=== PATIENT | female | born 1980 | race Caucasian/White ===

== ENCOUNTER 2017-01-06 10:41 | Emergency (ER) | payer OTHER ==
[~2017-01-06] VITALS: Ht 162.6 cm; Wt 103.4 kg
[~2017-01-06 10:41] MED LIST: ZOFRAN ODT4 MG PO
[2017-01-06 11:00] LABS: UTC STREP SCREEN NOT DETECTED (NOTDETECTED)
[2017-01-06] MEDS ORDERED: AMOXICILLIN 50500 MG PO (11:05)
[2017-01-06 11:06] VITALS: BP 126/53
--- NOTE | 2017-01-06 11:06 | Urgent Treatment Center Report ---
History of Present Issue Date/Time Seen by Provider 01/06/17 1100 Visit Reason Pt arrived:Walked Presenting Problem:PT STATES SHE HAS HEADACHE, SORE THROAT, STOMACH CRAMPS. STARTED X2 DAYS AGO. Location if Accident: Onset of symptoms date/time:/ or onset unknown for:MEDICAL HX UNKNOWN Have you (or family members/close friends) recently traveled outside the [place]? N If Yes, where/when: Have you had exposure to infectious disease within the past month? TB? Other? Specify: Patient states that she had a headache, sore throat and stomach aches and body aches for 2 days now so she thought she come in and get checked out ALLERGIES Uncoded Allergies: INGREDIENT: NO KNOWN - NO KNOWN DRUG ALLERGY (01/16/07) Home Medications Reported Medications No Known Home Medications History Medical History General Angina: No ME: No Hypertension? No Hyperlipidemia? No CHF? No COPD? No Asthma? No Hernia? No CVA? No Seizures? No Diabetes? No UTI? No Stones? No GB Disease: Yes Hepatitis? No Cataracts? No Glaucoma? No MRSA? No TB? No Cancer? No Immunization HX DT/Tetanus > 10 YRS Surgical Hx Previous Surgery?Y Gallbladd Oral Surgery Family History Family HX Diabetes No CAD No Hypertension No Hyperlipidemia No Cancer No TB No Social History Smoking Hx Smoker: Never Smoker Tobacco: No Alcohol Alcohol: No Review of Systems All Other Systems Reviewed and Negative ENT ear pain, nose discharge, nose congestion, throat swelling. Physical Exam Vital Signs Vital Signs Date Time Temp Pulse Resp B/P Pulse O2 O2 Flow FiO2 Ox Delivery Rate 01/06 1045 97.9 99 20 126/53 99 General Appearance normal appearance, WD/WN, no apparent distress Ear, Nose, Throat left ear bright red, TM buldging, throat slightly red, nare red, yellow mucous Respiratory Status Yes: trachea midline, chest symmetrical, non tender chest. No: respiratory distress. Cardiovascular normal exam, regular rate/rhythm, no peripheral edema Neurologic alert, pin setter II-XII nml as tested, normal exam, no motor/sensory deficits, oriented x 3 Medical Decision Making LABS/Meds/Orders Pt receiving controlled substance in ED? No Results/Orders Laboratory Tests 01/06/17 1052: Influenza Type A Ag NOT DETECTED, Influenza Type B Ag NOT DETECTED, Group A Strep Screen NOT DETECTED Orders Procedure Date/time Status [facility] STREP SCREEN 01/06 1052 Complete [facility] FLU A,B 01/06 1052 Complete Departure Departure Time of Disposition 1103 Disposition DC Home or Self Care(routine) Clinical Impression Primary Impression: Otitis media Qualifiers: Otitis media type: unspecified Laterality: left Chronicity: unspecified Qualified Code: H66.92 - Otitis media, unspecified, left ear Condition STABLE Referrals Eric Selby MD (Family) Patient Instructions DI for Otitis Media (Middle Ear Infection)-Child, Ear Infections (Middle Ear) (Alternative Therapy) Additional Instructions Over the counter Motrin or Tylenol as needed for fever or pain Follow up with family doctor Return if worse Discharge Counseling Counseled pt/family regarding diagnosis, test results, medications/RX, home care, follow up needs Prescriptions Current Visit Scripts Amoxicillin Trihydrate (Amoxicillin 500MG) 500 MG PO TID #30 CAP at 1101
--- NOTE | 2017-01-06 11:06 | Urgent Treatment Center Report ---
History of Present Issue Date/Time Seen by Provider 01/06/17 1100 Visit Reason Pt arrived:Walked Presenting Problem:PT STATES SHE HAS HEADACHE, SORE THROAT, STOMACH CRAMPS. STARTED X2 DAYS AGO. Location if Accident: Onset of symptoms date/time:/ or onset unknown for:MEDICAL HX UNKNOWN Have you (or family members/close friends) recently traveled outside the [place]? N If Yes, where/when: Have you had exposure to infectious disease within the past month? TB? Other? Specify: Patient states that she had a headache, sore throat and stomach aches and body aches for 2 days now so she thought she come in and get checked out ALLERGIES Uncoded Allergies: INGREDIENT: NO KNOWN - NO KNOWN DRUG ALLERGY (01/16/07) Home Medications Reported Medications No Known Home Medications History Medical History General Angina: No LA: No Hypertension? No Hyperlipidemia? No CHF? No COPD? No Asthma? No Hernia? No CVA? No Seizures? No Diabetes? No UTI? No Stones? No GB Disease: Yes Hepatitis? No Cataracts? No Glaucoma? No MRSA? No TB? No Cancer? No Immunization HX DT/Tetanus > 10 YRS Surgical Hx Previous Surgery?Y Gallbladd Oral Surgery Family History Family HX Diabetes No CAD No Hypertension No Hyperlipidemia No Cancer No TB No Social History Smoking Hx Smoker: Never Smoker Tobacco: No Alcohol Alcohol: No Review of Systems All Other Systems Reviewed and Negative ENT ear pain, nose discharge, nose congestion, throat swelling. Physical Exam Vital Signs Vital Signs Date Time Temp Pulse Resp B/P Pulse O2 O2 Flow FiO2 Ox Delivery Rate 01/06 1045 97.9 99 20 126/53 99 General Appearance normal appearance, WD/WN, no apparent distress Ear, Nose, Throat left ear bright red, TM buldging, throat slightly red, nare red, yellow mucous Respiratory Status Yes: trachea midline, chest symmetrical, non tender chest. No: respiratory distress. 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 No Results/Orders Laboratory Tests 01/06/17 1052: Influenza Type A Ag NOT DETECTED, Influenza Type B Ag NOT DETECTED, Group A Strep Screen NOT DETECTED Orders Procedure Date/time Status [facility] STREP SCREEN 01/06 1052 Complete [facility] FLU A,B 01/06 1052 Complete Departure Departure Time of Disposition 1103 Disposition DC Home or Self Care(routine) Clinical Impression Primary Impression: Otitis media Qualifiers: Otitis media type: unspecified Laterality: left Chronicity: unspecified Qualified Code: H66.92 - Otitis media, unspecified, left ear Condition STABLE Referrals Eric Selby MD (Family) Patient Instructions DI for Otitis Media (Middle Ear Infection)-Child, Ear Infections (Middle Ear) (Alternative Therapy) Additional Instructions Over the counter Motrin or Tylenol as needed for fever or pain Follow up with family doctor Return if worse Discharge Counseling Counseled pt/family regarding diagnosis, test results, medications/RX, home care, follow up needs Prescriptions Current Visit Scripts Amoxicillin Trihydrate (Amoxicillin 500MG) 500 MG PO TID #30 CAP at 1103
== END 2017-01-06 11:08 | disposition home or self-care (01) ==
LOC: UTC 10:41
PROVIDERS: Nurse Practitioner
DX: H66.92 Otitis media, unspecified, left ear (principal)

== ENCOUNTER 2017-05-04 09:06 | Emergency (ER) | payer OTHER ==
[~2017-05-04] VITALS: Ht 162.6 cm; Wt 104.3 kg
[~2017-05-04 09:06] MED LIST changes: +AMOXICILLIN 50500 MG PO
--- OUTSIDE RECORDS SUMMARY | 2017-05-04 09:10 | External Medical Summary Rpt ---
Author Author [employer] Organization [employer] Address Unknown Phone Unavailable Purpose Continuity of Care Document - through 2016
--- OUTSIDE RECORDS SUMMARY | 2017-05-04 09:10 | External Medical Summary Rpt ---
Author Author NANCYCLEMENCIA Sood, [employer] Organization [employer] Address Unknown Phone Unavailable Results Comprehensive metabolic 2000 panel in Serum or Plasma Observa Value Referen Units Interpr Notes Date tion ce etation Range Albumin/G 1.1 - 1.8 No Normal No Josemanuel 6 lobulin informati informati 2017 8:30 [Mass on in on in AM ratio] in source source Serum or data data Plasma Albumin 3.4 - 5.0 gm/dL Normal No Josemanuel 6 [Mass/vol informati 2017 8:30 ume] in on in AM Serum or source Plasma data Alkaline 46 - 116 U/L Normal No Josemanuel 6 phosphata informati 2017 8:30 se on in AM [Enzymati source c data activity/ volume] in Serum or Plasma Bilirubin 0.2 - 1.0 mg/dL Normal No Josemanuel 6 .total informati 2017 8:30 [Mass/vol on in AM ume] in source Serum or data Plasma Urea 7 - 18 mg/dL Normal No Josemanuel 6 nitrogen informati 2017 8:30 [Mass/vol on in AM ume] in source Serum or data Plasma Calcium 8.5 - mg/dL Normal No Josemanuel 6 [Mass/vol 10.1 informati 2017 8:30 ume] in on in AM Serum or source Plasma data Chloride 98 - 107 mmoL/L Normal No Josemanuel 6 [Moles/vo informati 2017 8:30 lume] in on in AM Serum or source Plasma data Carbon 21.0 - mmoL/L Normal No Josemanuel 6 dioxide, 32.0 informati 2017 8:30 total on in AM [Moles/vo source lume] in data Serum or Plasma Creatinin 0.55 - mg/dL Normal No Josemanuel 6 e 1.02 informati 2017 8:30 [Mass/vol on in AM ume] in source Serum or data Plasma Estimated 59- ML/MIN No REFERENCE Josemanuel 6 informati RANGE: 2017 8:30 glomerula on in >60 AM r source ML/MIN/1. filtratio data 73 SQUARE n rate METERSIf (GF this patient is -A merican, then multiply theresult by 1.210. Globulin 1.3 - 3.2 gm/dL Normal No Apr 6 [Mass/vol informati 2016 8:30 ume] in on in AM Serum source data Glucose 74 - 106 mg/dL Normal No Apr 6 [Mass/vol informati 2016 8:30 ume] in on in AM Serum or source Plasma data Potassium 3.5 - 5.1 mmoL/L Normal No Apr 07 informati 2016 8:30 [Moles/vo on in AM lume] in source Serum or data Plasma Sodium 136 - 145 mmoL/L Normal No Apr 6 [Moles/vo informati 2016 8:30 lume] in on in AM Serum or source Plasma data Aspartate 15 - 37 U/L Low No Apr 07 informati 2016 8:30 aminotran on in AM sferase source [Enzymati data c activity/ volume] in Serum or Plasma Alanine 12 - 78 U/L Normal No Apr 07 aminotran informati 2016 8:30 sferase on in AM [Enzymati source c data activity/ volume] in Serum or Plasma Protein 6.4 - 8.2 gm/dL Normal No Apr 07 [Mass/vol informati 2016 8:30 ume] in on in AM Serum or source Plasma data Lipid 1996 panel in Serum or Plasma Observa Value Referen Units Interpr Notes Date tion ce etation Range Cholester < 200 mg/dL No No Josemanuel 6 ol informati informati 2016 8:30 [Moles/vo on in on in AM lume] in source source Unspecifi data data ed specimen Cholester 40 - 60 MG/DL Normal No Apr 07 ol in HDL informati 2016 8:30 on in AM [Mass/vol source ume] in data Serum or Plasma Cholester 0 - 130 mg/dL Normal No Apr 07 ol in LDL informati 2016 8:30 on in AM [Mass/vol source ume] in data Serum or Plasma by crissy on Triglycer 30 - 200 mg/dL Normal No Apr 07 thai informati 2016 8:30 [Moles/vo on in AM lume] in source Serum or data Plasma Cholester 0 - 40 No Normal No Apr 07 ol in informati informati 2016 8:30 VLDL on in on in AM [Mass/vol source source ume] in data data Serum or Plasma Thyrotropin [Units/volume] in Serum or Plasma Observa Value Referen Units Interpr Notes Date tion ce etation Range Thyrotrop 0.358 - uIU/ml No No Apr 6 in 3.740 informati informati 2016 8:30 [Units/vo on in on in AM lume] in source source Serum or data data Plasma CBC W Auto Differential panel in Blood Observa Value Referen Units Interpr Notes Date tion ce etation Range Basophils 0 - 0.2 K/MM3 Normal No Apr 6 informati 2016 8:30 [#/volume on in AM ] in source Blood by data Automated count Basophils 0.1 - 2.0 % Normal No Apr 6 /100 informati 2017 8:30 leukocyte on in AM s in source Blood by data Automated count Eosinophi 0.0 - 0.4 K/mm3 Normal No Apr 07 ls informati 2016 8:30 [#/volume on in AM ] in source Blood by data Automated count Eosinophi 0.1 - % Normal No Apr 07 ls/100 12.0 informati 2016 8:30 leukocyte on in AM s in source Blood by data Automated count Granulocy 1.8 - 7.8 K/mm3 Normal No Apr 6 bryan informati 2017 8:30 [#/volume on in AM ] in source Blood by data Automated count Granulocy 37.0 - % Normal No Apr 6 bryan/100 80.0 informati 2017 8:30 leukocyte on in AM s in source Blood by data Automated count Hematocri 37.0 - % Normal No Apr 07 t [Volume 47.0 informati 2017 8:30 on in AM Fraction] source of Blood data Hemoglobi 12.2 - g/dL Normal No Apr 07 n 16.2 informati 2017 8:30 [Mass/vol on in AM ume] in source Blood data Lymphocyt 0.7 - 4.5 K/mm3 Normal No Apr 07 es informati 2016 8:30 [#/volume on in AM ] in source Unspecifi data ed specimen by Automated count Lymphocyt 10 - 50.0 % Normal No Apr 07 es informati 2016 8:30 [#/volume on in AM ] in source Unspecifi data ed specimen by Automated count Erythrocy 27 - 31.2 pg High No Apr 07 te mean informati 2016 8:30 corpuscul on in AM ar source hemoglobi data n [Entitic mass] Erythrocy 31.8 - g/dl Normal No Apr 6 te mean 35.4 informati 2017 8:30 corpuscul on in AM ar source hemoglobi data n concentra tion [Mass/vol ume] by Automated count Erythrocy 82.2 - fl Normal No Apr 6 te mean 97.8 informati 2016 8:30 corpuscul on in AM ar volume source [Entitic data volume] by Automated count Monocytes 0.1 - 1.0 K/mm3 Normal No Apr 6 informati 2016 8:30 [#/volume on in AM ] in source Blood by data Automated count Monocytes 1.7 - 9.3 % Normal No Apr 6 /100 informati 2017 8:30 leukocyte on in AM s in source Blood by data Automated count Platelet 7.4 - fl Normal No Apr 6 mean 10.4 informati 2016 8:30 volume on in AM [Entitic source volume] data in Blood by Automated count Platelets 142 - 424 K/mm3 No No Josemanuel 6 informati informati 2017 8:30 [#/volume on in on in AM ] in source source Blood data data Erythrocy 4.2 - 5.4 M/mm3 Normal No Apr 6 bryan informati 2017 8:30 [#/volume on in AM ] in source Amniotic data fluid Erythrocy 11.5 - % Normal No Apr 6 te 17.5 informati 2016 8:30 distribut on in AM ion width source [Entitic data volume] by Automated count Leukocyte 4.8 - K/MM3 Normal No Josemanuel 6 s 10.8 informati 2016 8:30 [#/volume on in AM ] in source Blood data
--- OUTSIDE RECORDS SUMMARY | 2017-05-04 09:10 | External Medical Summary Rpt ---
Author Author , Organization [employer] Address Unknown Phone Unavailable Care Team Providers Care Lending Advisor Name Role Phone Ritu Marinelli MD, Unavailable Unavailable Ritu Marinelli MD Purpose Continuity of Care Document - 10-03-2013 through 2016 Problems Code Diagnosis DOS Provider Status 558.9 558.9 10-03-2013 [facility] IT NEC Allergies, Adverse Reactions, Alerts Type Allergy to substance Adverse Reaction to Substance Substance Reaction Severity INGREDIENT: NO KNOWN Unknown Unknown - NO KNOWN DRUG ALLERGY Medications Na ND Rx Da Fi Fi Am Da Di Ph RX Ph St me C No te ll ll ou ys ag ar # ys at rm s nt no ma ic us Or Da si cy ia de te s n re d SO 00 12 0 No DI 40 -0 UM 97 2- Lo 98 20 ng CH 30 13 er LO 9 RI Ac DE ti ve 0. 9% SO NEL TI ON LA [address] 40 -0 AT 97 2- Lo ED 95 20 ng 30 13 er RI 9 NG Ac ER ti S ve IN JE CT IO N Sa 63 12 0 No li 80 -0 ne 70 2- Lo 10 20 ng Fl 07 13 er us 5 h Ac 10 ti ML ve Sy ri ng e ON 00 12 0 No DA 64 -0 NS 16 2- Lo ET 08 20 ng RO 02 13 er N 5 HC Ac L ti 4 ve MG /2 ML AL SC 00 12 0 No OM 64 -0 ET 11 2- Lo DELGADO 49 20 ng ZI 53 13 er NE 5 Ac 25 ti ve MG /M L AM PU L Sa 63 12 0 No li 80 -0 ne 70 2- Lo 10 20 ng Fl 07 13 er us 5 h Ac 10 ti ML ve Sy ri ng e KE 00 12 0 No TO 40 -0 RO 93 2- Lo LA 79 20 ng C 50 13 er 30 1 Ac MG ti /M ve L AL SC 51 12 0 No OM 07 -0 ET 90 2- Lo DELGADO 89 20 ng ZI 52 13 er NE 0H Ac 25 ti MG ve TA BL ET TA KE SC 45 12 0 No OM 80 -0 ET 20 2- Lo DELGDAO 75 20 ng ZI 83 13 er NE 0H Ac 12 ti .5 ve MG MILLIGAN PP TA KE Vital Signs 10-03-2013 19:58 Name Value Interpretat Reference Comment ion Range Body 98.7 [degF] Temperature BP 88 mm[Hg] Diastolic BP Systolic 151 mm[Hg] Heart 111 /min Rate/Pulse O2% 97 % Respiratory 18 /min Rate 10-03-2013 16:28 Name Value Interpretat Reference Comment ion Range Body 100.7 Temperature [degF] BP 69 mm[Hg] Diastolic BP Systolic 141 mm[Hg] Heart 119 /min Rate/Pulse O2% 98 % Respiratory 20 /min Rate Results Labs Lab Lab Date Result Refere Interp Status Commen Order Detail nces retati t Range on B-HCG Ur Ql (10-03-2013 16:55) B-HCG NEGATIV NEG complet Ur Ql 013 E ed 16:55 URINALYSIS/COMPLETE (10-03-2013 16:55) URINE DK YELLOW complet COLOR 013 YELLOW ed 16:55 URINE SL CLEAR complet APPEARA 013 CLOUDY ed NCE 16:55 URINE NEGATIV NEG complet GLUCOSE 013 E ed - 16:55 DIPSTIC K URINE NEGATIV NEG complet BILIRUB 013 E ed IN - 16:55 DIPSTIC K URINE NEGATIV NEG complet KETONE 013 E mg/dL ed 16:55 URINE 1.025 1.005-1 complet SPECIFI 013 UNK .030 ed C 16:55 GRAVITY URINE NEGATIV NEG complet BLOOD 013 E ed 16:55 URINE 6.5 UNK 5.0-8.5 complet PH 013 ed 16:55 URINE NEGATIV NEG complet PROTEIN 013 E mg/dL ed - 16:55 DIPSTIC K URINE 0.2 NEG complet UROBILI 013 E.U./dL ed NOGEN - 16:55 DIPSTIC K URINE NEGATIV NEG complet NITRATE 013 E ed - 16:55 DIPSTIC K URINE TRACE NEG complet LEUK 013 ed ESTERAS 16:55 E URINE 50-100 O complet WBC 013 wbc/hpf ed 16:55 URINE 50-100 0-5 complet SQUAMOU 013 #/hpf ed S CELLS 16:55 URINE 1+ O complet BACTERI 013 ed A 16:55 COMPREHENSIVE METABOLIC PANEL (10-03-2013 16:02) Glucose 113 74-106 complet 013 mg/dL ed Bld-mCn 16:02 c BUN 11 7-18 complet Bld-mCn 013 mg/dL ed c 16:02 Creat 0.9 0.6-1.0 complet SerPl-m 013 mg/dL ed Cnc 16:02 Creat 161 50-200 complet Cl 013 ML/MIN ed predict 16:02 ed SerPl C-G-vRa te GFR/BSA 73 59- complet .pred 013 ML/MIN ed SerPl 16:02 Schwart z-vRate Sodium 140 136-145 complet SerPl-s 013 mmoL/L ed Cnc 16:02 Potassi 4.1 3.5-5.1 complet um 013 mmoL/L ed SerPl-s 16:02 Cnc Chlorid 104 98-107 complet e 013 mmoL/L ed SerPl-s 16:02 Cnc CO2 23 21.0-32 complet SerPl-s 013 mmoL/L .0 ed Cnc 16:02 Calcium 8.7 8.5-10. complet 013 mg/dL 1 ed SerPl-m 16:02 Cnc Prot 8.2 6.4-8.2 complet SerPl-m 013 gm/dL ed Cnc 16:02 Albumin 10-03- 4.1 3.4-5.0 complet 013 gm/dL ed SerPl-m 16:02 Cnc Globuli 4.1 1.3-3.2 complet n 013 gm/dL ed Ser-mCn 16:02 c Albumin 1.0 UNK 1.1-1.8 complet /Glob 013 ed SerPl-m 16:02 Rto Bilirub 10-03-2 1.0 0.2-1.0 complet 013 mg/dL ed SerPl-m 16:02 Cnc AST 10-03-2 29 U/L 15-37 complet SerPl-c 013 ed Cnc 16:02 ALT 02-2 51 U/L 30-65 complet SerPl-c 013 ed Cnc 16:02 ALP 02-2 123 U/L 50-136 complet SerPl-c 013 ed Cnc 16:02 CBC with AUTO DIFF (10-03-2013 16:02) WBC # 1202-2 14.8 4.8-10. complet Bld 013 K/MM3 8 ed Auto 16:02 RBC # 10-03-2 5.23 4.2-5.4 complet Bld 013 M/mm3 ed Auto 16:02 Hgb 10-03-2 15.6 12.2-16 complet Bld-mCn 013 g/dL .2 ed c 16:02 Hct Fr 10-03-2 45.8 % 37.0-47 complet Bld 013 .0 ed 16:02 MCV RBC 10-03-2 87.5 fl 82.2-97 complet 013 .8 ed 16:02 MCH RBC 10-03-2 29.9 pg 27-31.2 complet Qn 013 ed Auto 16:02 MEAN 10-03-2 34.2 31.8-35 complet CORPUSC 013 g/dl .4 ed ULAR 16:02 HGB CONC RDW RBC 10-03-2 14.8 % 11.5-17 complet Auto 013 .5 ed 16:02 Platele 10-03-2 212 142-424 complet t Bld 013 K/mm3 ed Ql 16:02 Manual MEAN 10-03-2 7.8 fl 7.4-10. complet PLATELE 013 4 ed T 16:02 VOLUME Granulo 10-03-2 92.3 % 37.0-80 complet cytes 013 .0 ed Fr Bld 16:02 Auto LYMPH % -02-2 3.9 % 10-50.0 complet 013 ed 16:02 Monocyt 10-03-2 3.5 % 1.7-9.3 complet es Fr 013 ed Bld 16:02 Auto Eosinop 10-03-2 0.3 % 0.1-12. complet hil Fr 013 0 ed Bld 16:02 Auto Basophi 10-03-2 0.1 % 0.1-2.0 complet ls Fr 013 ed Bld 16:02 Auto Granulo 13.7 1.8-7.8 complet cytes # 013 K/mm3 ed Bld 16:02 Auto Lymphoc 0.6 0.7-4.5 complet ytes Fr 013 K/mm3 ed Bld 16:02 Auto Monocyt 0.5 0.1-1.0 complet es # 013 K/mm3 ed Bld 16:02 Auto Eosinop 0.1 0.0-0.4 complet hil # 013 K/mm3 ed Bld 16:02 Auto Basophi 0.0 0-0.2 complet ls # 013 K/MM3 ed Bld 16:02 Auto Encounters Encounter Start End Date Code Location Performer Type Date Emergency POLO Marinelli MD (ER) 3 16:02 3 19:59 [facility]
--- OUTSIDE RECORDS SUMMARY | 2017-05-04 09:10 | External Medical Summary Rpt ---
Author Author , Organization [employer] Address Unknown Phone Unavailable Care Team Providers Care Research Staff Member Name Role Phone Ritu Marinelli MD, Unavailable Unavailable Ritu Marinelli MD Purpose Continuity of Care Document - 10-03-2013 through 2016 Problems Code Diagnosis DOS Provider Status 558.9 558.9 10-03-2013 [facility] IT NEC Allergies, Adverse Reactions, Alerts [...] ti 4 ve MG /2 ML AL DE 00 12 0 No OM 64 -0 [...] Ac MG ti /M ve L AL DE 51 12 0 No OM 07 -0 ET 90 2- Lo DELGADO 89 20 ng ZI 52 13 er NE 0H Ac 25 ti MG ve TA BL ET TA KE DE 45 12 0 No OM 80 -0 ET 20 2- Lo DELGADO 75 20 ng ZI 83 13 er [...] Marinelli MD (ER) 3 16:02 3 19:59 [facility]
--- OUTSIDE RECORDS SUMMARY | 2017-05-04 09:10 | External Medical Summary Rpt ---
Demographics Preferred Language Sinhala Marital Status Unknown Church Affiliation Unknown Race Unknown Ethnic Group Unknown Author Author , Organization [employer] Address Unknown Phone Unavailable Purpose Continuity of Care Document - through 2016 Immunization No patient found.
--- OUTSIDE RECORDS SUMMARY | 2017-05-04 09:10 | External Medical Summary Rpt ---
Demographics Preferred Language Tajik Marital Status Unknown Buddhist Affiliation Unknown Race Unknown Ethnic Group Unknown Author Author , Organization [employer] Address Unknown Phone Unavailable Purpose Continuity of Care Document - through 2016 Immunization No patient found.
[2017-05-04 09:25] LABS: URINE BILIRUBIN - DIPSTICK NEGATIVE (NEG)
[2017-05-04 09:26] LABS: URINE BLOOD NEGATIVE (NEG)
[2017-05-04] MEDS ORDERED: MACROBID100 M3 PO (09:35)
[2017-05-04] MEDS ORDERED: PYRIDIUM100 M2 PO (09:35)
--- NOTE | 2017-05-04 09:36 | Urgent Treatment Center Report ---
History of Present Issue Date/Time Seen by Provider 05/04/17 0930 Visit Reason Pt arrived:Walked Presenting Problem:PT STATES THURSDAY SHE BEGAN HAVING BURNING WITH URINATION. STATES DRINKING CRANBERRY JUICE WITH NO RELIEF. STATES BURNING HAS GOTTEN WORSE Location if Accident: Onset of symptoms date/time:05/01/17/ or onset unknown for:MEDICAL HX UNKNOWN Have you (or family members/close friends) recently traveled outside the [place]? N If Yes, where/when: Have you had exposure to infectious disease within the past month? TB? Other? Specify: Patient state that she noticed a few days ago that she was having burning with urination. State that she started drinking Cranberry juice but it has not helped and she has continued to have the burning. States that now the burning has got worse and she wanted to get checked before it got real bad ALLERGIES Coded Allergies: No Known Allergies (05/04/17) History Medical History General CAD? No Angina: No [place]: No Hypertension? No Hyperlipidemia? No CHF? No DVT? No PE? No COPD? No Asthma? No Anemia? No GERD? No Gastric ulcers? No GI Bleed? No Hernia? No Thyroid Problems? No Hypothyroidism? No CVA? No Seizures? No Diabetes? No Renal Insuffiency? No UTI? No Stones? No GB Disease: Yes Nephritic Syndrome? No Asplenia? No Hepatitis? No Sickle Cell Disease? No Arthritis? No Migraines? No Cataracts? No Glaucoma? No MRSA? No HIV? No TB? No Anxiety? No Depression? No Cancer? 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 denies: abnormal vaginal bleeding, pelvic pain. Physical Exam Vital Signs Vital Signs Date Time Temp Pulse Resp B/P Pulse O2 O2 Flow FiO2 Ox Delivery Rate 05/04 912 98.0 74 20 121/82 100 General Appearance normal appearance, WD/WN, no apparent distress Respiratory Status Yes: trachea midline, chest symmetrical, non tender chest. No: respiratory distress. Cardiovascular normal exam, regular rate/rhythm, no peripheral edema, no gallop Neurologic alert, ripening room hand II-XII nml as tested, normal exam, no motor/sensory deficits, oriented x 3 Medical Decision Making LABS/Meds/Orders Pt receiving controlled substance in ED? No Results/Orders Laboratory Tests 05/04/17 0924: Urine Color YELLOW, Urine Appearance CLEAR, Urine pH 6.0, Ur Specific [place] 1.010, Urine Protein NEGATIVE, Urine Ketones NEGATIVE, Urine Blood NEGATIVE, Urine Nitrate NEGATIVE, Urine Bilirubin NEGATIVE, Urine Urobilinogen 0.2, Ur Leukocyte Esterase TRACE H, Urine Glucose NEGATIVE Orders Procedure Date/time Status [facility] URINE DIPSTICK 05/04 924 Complete Departure Departure Time of Disposition 0932 Disposition DC Home or Self Care(routine) Clinical Impression Primary Impression: UTI (urinary tract infection) Qualifiers: Urinary tract infection type: site unspecified Hematuria presence: without hematuria Qualified Code: N39.0 - Urinary tract infection, site not specified Condition STABLE Referrals Bal GOODE,Eric (Family): 3 Days-Call Office if no improvement or worsening of symptoms Patient Instructions DI for Urinary Tract Infection (UTI) Additional Instructions Drink plenty of water and cranberry juice Take medication as prescribed Avoid bubble baths Wipe from front to back after urination Return if needed Discharge Counseling Counseled pt/family regarding diagnosis, test results, medications/RX, home care, follow up needs Prescriptions Current Visit Scripts NITROFURANTOIN MONOHYD/M-CRYST (Macrobid 100 MG Capsule) 100 MG PO BID #14 CAP Phenazopyridine HCl (Pyridium) 100 MG PO TID #6 TAB at 0936
--- NOTE | 2017-05-04 09:36 | Urgent Treatment Center Report ---
History of Present Issue Date/Time Seen by Provider 05/04/17 0930 Visit Reason Pt arrived:Walked Presenting Problem:PT STATES THURSDAY SHE BEGAN HAVING BURNING WITH URINATION. STATES DRINKING CRANBERRY JUICE WITH NO RELIEF. STATES BURNING HAS GOTTEN WORSE Location if Accident: Onset of symptoms date/time:05/01/17/ or onset unknown for:MEDICAL HX UNKNOWN Have you (or family members/close friends) recently traveled outside the [place]? N If Yes, where/when: Have you had exposure to infectious disease within the past month? TB? Other? Specify: Patient state that she noticed a few days ago that she was having burning with urination. State that she started drinking Cranberry juice but it has not helped and she has continued to have the burning. States that now the burning has got worse and she wanted to get checked before it got real bad ALLERGIES Coded Allergies: No Known Allergies (05/04/17) History Medical History General CAD? No Angina: No [place]: No Hypertension? No Hyperlipidemia? No CHF? No DVT? No PE? No COPD? No Asthma? No Anemia? No GERD? No Gastric ulcers? No GI Bleed? No Hernia? No Thyroid Problems? No Hypothyroidism? No CVA? No Seizures? No Diabetes? No Renal Insuffiency? No UTI? No Stones? No GB Disease: Yes Nephritic Syndrome? No Asplenia? No Hepatitis? No Sickle Cell Disease? No Arthritis? No Migraines? No Cataracts? No Glaucoma? No MRSA? No HIV? No TB? No Anxiety? No Depression? No Cancer? 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 denies: abnormal vaginal bleeding, pelvic pain. Physical Exam Vital Signs Vital Signs Date Time Temp Pulse Resp B/P Pulse O2 O2 Flow FiO2 Ox Delivery Rate 05/04 912 98.0 74 20 121/82 100 General Appearance normal appearance, WD/WN, no apparent distress Respiratory Status Yes: trachea midline, chest symmetrical, non tender chest. No: respiratory distress. 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 No Results/Orders Laboratory Tests 05/04/17 0924: Urine Color YELLOW, Urine Appearance CLEAR, Urine pH 6.0, Ur Specific [place] 1.010, Urine Protein NEGATIVE, Urine Ketones NEGATIVE, Urine Blood NEGATIVE, Urine Nitrate NEGATIVE, Urine Bilirubin NEGATIVE, Urine Urobilinogen 0.2, Ur Leukocyte Esterase TRACE H, Urine Glucose NEGATIVE Orders Procedure Date/time Status [facility] URINE DIPSTICK 05/04 924 Complete Departure Departure Time of Disposition 0932 Disposition DC Home or Self Care(routine) Clinical Impression Primary Impression: UTI (urinary tract infection) Qualifiers: Urinary tract infection type: site unspecified Hematuria presence: without hematuria Qualified Code: N39.0 - Urinary tract infection, site not specified Condition STABLE Referrals Bal GOODE,Eric (Family): 3 Days-Call Office if no improvement or worsening of symptoms Patient Instructions DI for Urinary Tract Infection (UTI) Additional Instructions Drink plenty of water and cranberry juice Take medication as prescribed Avoid bubble baths Wipe from front to back after urination Return if needed Discharge Counseling Counseled pt/family regarding diagnosis, test results, medications/RX, home care, follow up needs Prescriptions Current Visit Scripts NITROFURANTOIN MONOHYD/M-CRYST (Macrobid 100 MG Capsule) 100 MG PO BID #14 CAP Phenazopyridine HCl (Pyridium) 100 MG PO TID #6 TAB at 0936
[2017-05-04 09:37] VITALS: BP 121/82
== END 2017-05-04 09:37 | disposition home or self-care (01) ==
LOC: UTC 09:06
PROVIDERS: Nurse Practitioner
DX: J03.90 Acute tonsillitis, unspecified (principal); J06.9 Acute upper respiratory infection, unspecified

== ENCOUNTER 2017-05-09 12:05 | Emergency (ER) | payer OTHER ==
[~2017-05-09] VITALS: Ht 162.6 cm; Wt 108.9 kg
[~2017-05-09 12:05] MED LIST changes: +MACROBID100 M3 PO; +PYRIDIUM100 M2 PO
--- OUTSIDE RECORDS SUMMARY | 2017-05-09 12:41 | External Medical Summary Rpt ---
Author Author , DAYNE OSCAR Address Unknown Phone [email or web address] Care Team Providers Care Jar Filler Name Role Phone Ritu Marinelli MD, Unavailable Unavailable Ritu Marinelli MD Purpose Continuity of Care Document - 10-03-2013 through 2016 Problems Code Diagnosis DOS Provider Status 558.9 558.9 10-03-2013 [facility] IT NEC Allergies, Adverse Reactions, Alerts [...] ti 4 ve MG /2 ML [place] 00 12 0 No OM 64 -0 [...] Ac MG ti /M ve L [place] 51 12 0 No OM 07 -0 ET 90 2- Lo DELGADO 89 20 ng ZI 52 13 er NE 0H Ac 25 ti MG ve TA BL ET TA KE TX 45 12 0 No OM 80 -0 [...] Order Detail nces retati t Range on Urinalysis macro (dipstick) panel in Urine (05-04-2017 09:24) Appeara CLEAR CLEAR complet nce of 017 ed Urine 09:24 Bilirub NEGATIV NEG complet in 017 E ed [Presen 09:24 ce] in Urine by Test strip Erythro NEGATIV NEG complet cytes 017 E ed [Presen 09:24 ce] in Urine Color YELLOW YELLOW complet of 017 ed Urine 09:24 Ketones NEGATIV NEG complet 017 E ed [Presen 09:24 ce] in Urine by Automat ed test strip Leukocy TRACE NEG Abnorma complet te 017 l ed esteras 09:24 e [Presen ce] in Urine by Automat ed test strip Nitrite NEGATIV NEG complet 017 E ed [Presen 09:24 ce] in Urine by Test strip Urobili 0.2 NEG complet nogen 017 ed [Presen 09:24 ce] in Urine by Test strip B-HCG Ur Ql (10-03-2013 16:55) B-HCG NEGATIV [...] SerPl-m 013 gm/dL ed Cnc 16:02 Albumin 4.1 3.4-5.0 complet 013 gm/dL ed SerPl-m 16:02 Cnc Globuli 4.1 1.3-3.2 complet n 013 gm/dL ed Ser-mCn 16:02 c Albumin 1.0 UNK 1.1-1.8 complet /Glob 013 ed SerPl-m 16:02 Rto Bilirub 1.0 0.2-1.0 complet 013 mg/dL ed SerPl-m 16:02 Cnc AST 29 U/L 15-37 complet SerPl-c 013 ed Cnc 16:02 ALT 51 U/L 30-65 complet SerPl-c 013 ed Cnc 16:02 ALP 123 U/L 50-136 complet SerPl-c 013 ed Cnc 16:02 CBC with AUTO DIFF (10-03-2013 16:02) WBC # 10-03-2 14.8 4.8-10. complet Bld 013 K/MM3 8 ed Auto 16:02 RBC # 10-03- 5.23 4.2-5.4 complet Bld 013 M/mm3 ed Auto 16:02 Hgb 10-03- 15.6 12.2-16 complet Bld-mCn 013 g/dL .2 ed c 16:02 Hct Fr 45.8 % 37.0-47 complet Bld 013 .0 ed 16:02 MCV RBC 87.5 fl 82.2-97 complet 013 .8 ed 16:02 MCH RBC 10-03-2 29.9 pg 27-31.2 complet Qn 013 ed Auto 16:02 MEAN 34.2 31.8-35 complet CORPUSC 013 g/dl .4 ed ULAR 16:02 HGB CONC RDW RBC 10-03- 14.8 % 11.5-17 complet Auto 013 .5 ed 16:02 Platele 10-03-2 212 142-424 complet t Bld 013 K/mm3 ed Ql 16:02 Manual MEAN 7.8 fl 7.4-10. complet PLATELE 013 4 ed T 16:02 VOLUME Granulo 10-03-2 92.3 % 37.0-80 complet cytes 013 .0 ed Fr Bld 16:02 Auto LYMPH % 10-03-2 3.9 % 10-50.0 complet 013 ed 16:02 Monocyt 10-03-2 3.5 % 1.7-9.3 complet es Fr 013 ed Bld 16:02 Auto Eosinop 10-03-2 0.3 % 0.1-12. complet hil Fr 013 0 ed Bld 16:02 Auto Basophi 10-03-2 0.1 % 0.1-2.0 complet ls Fr 013 ed Bld 16:02 Auto Granulo 10-03-2 13.7 1.8-7.8 complet cytes # 013 K/mm3 ed Bld 16:02 Auto Lymphoc 10-03-2 0.6 0.7-4.5 complet ytes Fr 013 K/mm3 ed Bld 16:02 Auto Monocyt 10-03-2 0.5 0.1-1.0 complet es # 013 K/mm3 ed Bld 16:02 Auto Eosinop 10-03-2 0.1 0.0-0.4 complet hil # 013 K/mm3 ed Bld 16:02 Auto Basophi 10-03-2 0.0 0-0.2 complet ls # 013 K/MM3 ed Bld 16:02 Auto Encounters Encounter Start End Date Code Location Performer Type Date Emergency POLO Marinelli MD (ER) 3 16:02 3 19:59 [facility]
--- OUTSIDE RECORDS SUMMARY | 2017-05-09 12:41 | External Medical Summary Rpt ---
Author Author , DAYNE OSCAR Address Unknown Phone [email or web address] Care Team Providers Care Bilingual Medical Receptionist Name Role Phone Ritu Marinelli MD, Unavailable Unavailable Ritu Marinelli MD Purpose Continuity of Care Document - 10-03-2013 through 2016 Problems Code Diagnosis DOS Provider Status 558.9 558.9 10-03-2013 [facility] IT NEC Allergies, Adverse Reactions, Alerts [...] ti 4 ve MG /2 ML AL [place] 00 12 0 No OM 64 -0 [...] Ac MG ti /M ve L [place] 51 12 0 No OM 07 -0 ET 90 2- Lo DELGADO 89 20 ng ZI 52 13 er NE 0H Ac 25 ti MG ve TA BL ET TA KE [place] 45 12 0 No OM 80 -0 [...] Marinelli MD (ER) 3 16:02 3 19:59 [facility]
--- OUTSIDE RECORDS SUMMARY | 2017-05-09 12:42 | External Medical Summary Rpt ---
Demographics Preferred Language Burmese Marital Status Unknown Alevism Affiliation Unknown Race Unknown Ethnic Group Unknown Author Author DAYNE Address Unknown Phone Immunization No patient found.
--- OUTSIDE RECORDS SUMMARY | 2017-05-09 12:42 | External Medical Summary Rpt ---
Demographics Preferred Language [place] Marital Status Unknown Jehovah'S Witness Affiliation Unknown Race Unknown Ethnic Group Unknown Author Author DAYNE Address Unknown Phone Immunization No patient found.
--- OUTSIDE RECORDS SUMMARY | 2017-05-09 12:42 | External Medical Summary Rpt ---
Author Author DAYNE Sood, [employer] Organization [employer] Address Unknown Phone Unavailable Results Urinalysis macro (dipstick) panel in Urine Observa Value Referen Units Interpr Notes Date tion ce etation Range Appeara CLEAR CLEAR No No No May 04 nce of informa informa informa 2016 Urine tion in tion in tion in 9:24 AM source source source data data data Bilirub NEGATIV NEG No No No May 04 in E informa informa informa 2016 [Presen tion in tion in tion in 9:24 AM ce] in source source source Urine data data data by Test strip Erythro NEGATIV NEG No No No May 04 cytes E informa informa informa 2016 [Presen tion in tion in tion in 9:24 AM ce] in source source source Urine data data data Color YELLOW YELLOW No No No May 04 of informa informa informa 2017 Urine tion in tion in tion in 9:24 AM source source source data data data Glucose NEG No No No May 04 [Mass/vol informati informati informati 2016 9:24 ume] in on in on in on in AM Urine by source source source Test data data data strip Ketones NEGATIV NEG mg/dL No No May 04 E informa informa 2016 [Presen tion in tion in 9:24 AM ce] in source source Urine data data by Automat ed test strip pH of 5.0 - 8.5 No Normal No May 04 Urine informati informati 2016 9:24 on in on in AM source source data data Protein NEG mg/dL No No May 04 [Mass/vol informati informati 2016 9:24 ume] in on in on in AM Urine by source source Automated data data test strip Specific 1.005 - No Normal No May 04 gravity 1.030 informati informati 2016 9:24 of Urine on in on in AM source source data data Leukocy TRACE NEG No Abnorma No May 04 te informa l informa 2017 esteras tion in tion in 9:24 AM e source source [Presen data data ce] in Urine by Automat ed test strip Nitrite NEGATIV NEG No No No May 04 E informa informa informa 2016 [Presen tion in tion in tion in 9:24 AM ce] in source source source Urine data data data by Test strip Urobili 0.2 NEG E.U./dL No No May 04 nogen informa informa 2016 [Presen tion in tion in 9:24 AM ce] in source source Urine data data by Test strip Comprehensive metabolic 2000 panel in Serum or Plasma Observa Value Referen Units Interpr Notes Date tion ce etation Range Albumin/G 1.1 - 1.8 No Normal No Josemanuel 6 lobulin informati informati 2016 8:30 [Mass on in on in AM [...] 74 - 106 mg/dL Normal No Apr 07 [Mass/vol informati 2016 8:30 ume] in on in AM Serum or source Plasma data Potassium 3.5 - 5.1 mmoL/L Normal No Apr 07 informati 2016 8:30 [Moles/vo on in AM lume] in source Serum or data Plasma Sodium 136 - 145 mmoL/L Normal No Apr 07 [Moles/vo informati 2016 8:30 lume] in on [...] Range Cholester < 200 mg/dL No No Apr 07 ol informati informati 2016 8:30 [Moles/vo on [...] ume] in data Serum or Plasma by calculati on Triglycer 30 - 200 mg/dL Normal No Apr 07 thai informati 2016 8:30 [Moles/vo on in AM lume] in source Serum or data Plasma Cholester 0 - 40 No Normal No Josemanuel 6 ol in informati informati 2016 8:30 VLDL [...] 0.0 - 0.4 K/mm3 Normal No Apr 6 ls informati 2016 8:30 [#/volume on in AM ] in source Blood by data Automated count Eosinophi 0.1 - % Normal No Apr 6 ls/100 12.0 informati 2016 8:30 leukocyte on in AM s in source Blood by data Automated count Granulocy 1.8 - 7.8 K/mm3 Normal No Apr 07 bryan informati 2016 8:30 [#/volume on in AM ] in source Blood by data Automated count Granulocy 37.0 - % Normal No Apr 6 bryan/100 80.0 informati 2016 8:30 leukocyte on in AM s in source Blood by data Automated count Hematocri 37.0 - % Normal No Apr 07 t [Volume 47.0 informati 2016 8:30 on in AM Fraction] source of Blood data Hemoglobi 12.2 - g/dL Normal No Apr 6 n 16.2 informati 2016 8:30 [Mass/vol on in AM ume] in [...] Erythrocy 27 - 31.2 pg High No Josemanuel 6 te mean informati 2017 8:30 corpuscul on in AM ar source hemoglobi data n [Entitic mass] Erythrocy 31.8 - g/dl Normal No Apr 6 te mean 35.4 informati 2017 8:30 corpuscul on in AM ar source hemoglobi data n concentra tion [Mass/vol ume] by Automated count Erythrocy 82.2 - fl Normal No Apr 6 te mean 97.8 informati 2017 8:30 corpuscul on in AM ar volume [...] Normal No Apr 6 mean 10.4 informati 2017 8:30 volume on in AM [Entitic source volume] data in Blood by Automated count Platelets 142 - 424 K/mm3 No No Apr 6 informati informati 2017 8:30 [#/volume on in on in AM ] in source source Blood data data Erythrocy 4.2 - 5.4 M/mm3 Normal No Apr 6 bryan informati 2017 8:30 [#/volume on in AM ] in source Amniotic data fluid Erythrocy 11.5 - % Normal No Josemanuel 6 te 17.5 informati 2017 8:30 distribut on in AM ion width source [Entitic data volume] by Automated count Leukocyte 4.8 - K/MM3 Normal No Apr 6 s 10.8 informati 2016 8:30 [#/volume on in AM ] in source Blood data
[2017-05-09] MEDS ORDERED: OMNICEF 300 MG300 MG PO (12:58)
--- NOTE | 2017-05-09 12:59 | Urgent Treatment Center Report ---
History of Present Issue Date/Time Seen by Provider 05/09/17 1244 Visit Reason Pt arrived:Walked Presenting Problem:PT STATES WAKING UP LAST NIGHT SWEATING WITH EAR FULLNESS, ACHES, SORE THROAT AND SWELLING TO HER THROAT. Location if Accident: Onset of symptoms date/time:05/09/17/ or onset unknown for:MEDICAL HX UNKNOWN Have you (or family members/close friends) recently traveled outside the [place]? N If Yes, where/when: Have you had exposure to infectious disease within the past month? TB? Other? Specify: Patient state that she has not been feeling well for several days, States that her ears feel full and her throat is very sore and swollen. States that she has been having body ache and not sure if she has been running a fever but has awoken in the night sweating as if her fever just broke ALLERGIES Coded Allergies: No Known Allergies (05/04/17) Home Medications Active Scripts NITROFURANTOIN MONOHYD/M-CRYST (Macrobid 100 MG Capsule) 100 MG PO BID #14 CAP Prov: 05/04/17 Phenazopyridine HCl (Pyridium) 100 MG PO TID #6 TAB Prov: 05/04/17 History Medical History General CAD? No Angina: No [place]: No Hypertension? No Hyperlipidemia? No CHF? No DVT? No PE? No COPD? No Asthma? No Anemia? No GERD? No Gastric ulcers? No GI Bleed? No Hernia? No Thyroid Problems? No Hypothyroidism? No CVA? No Seizures? No Diabetes? No Renal Insuffiency? No UTI? No Stones? No GB Disease: Yes Nephritic Syndrome? No Asplenia? No Hepatitis? No Sickle Cell Disease? No Arthritis? No Migraines? No Cataracts? No Glaucoma? No MRSA? No HIV? No TB? No Anxiety? No Depression? No Cancer? No Immunization HX DT/Tetanus > 10 YRS Surgical Hx Previous Surgery?Y Gallbladd Oral Surgery Family History Family HX Diabetes No CAD No Hypertension No Hyperlipidemia No Cancer No TB No Social History Smoking Hx Smoker: Never Smoker Tobacco: No Alcohol Alcohol: No Review of Systems All Other Systems Reviewed and Negative ENT ear pain, nose congestion, throat pain, throat swelling. Respiratory cough Physical Exam Vital Signs Vital Signs Date Time Temp Pulse Resp B/P Pulse O2 O2 Flow FiO2 Ox Delivery Rate 05/09 1214 98.2 103 20 115/80 99 General Appearance Patient appears ill sitting on exam table Ear, Nose, Throat tonsillar swelling, Throat bright red, swollen, drainage noted , left ear mildly red, tm buldging Respiratory Status Yes: trachea midline, chest symmetrical, non tender chest. No: respiratory distress. 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 No Results/Orders Laboratory Tests 05/09/17 1212: Group A Strep Screen NOT DETECTED Orders Procedure Date/time Status [facility] STREP SCREEN 05/09 1217 Complete Departure Departure Time of Disposition 1254 Disposition DC Home or Self Care(routine) Clinical Impression Primary Impression: Upper respiratory infection Qualifiers: URI type: acute tonsillitis Pharyngitis/tonsillitis etiology: unspecified etiology Qualified Code: J03.90 - Acute tonsillitis, unspecified Condition STABLE Referrals Eric Selby MD (PCP/Family): 3 Days-Call Office if no improvement in symptom Patient Instructions Sore Throat Additional Instructions * Monitor Temp. Tylenol and/or Ibuprofen as needed. ER if fever is no less than 101 despite alternating Tylenol and Ibuprofen * Encourage fluids, water, Gatorade, powerade, pedialyte if infant/toddler/or child * Warm salt water gargles for throat irritation *Warm fluids *Sore throat lozenges *Sleep elevated *humidifier or vaporizer Follow up IMMEDIATELY for new or worsening of symptoms OR no noticeable improvement over the next 48-72 hours. 911 immediately for any life threatening symptoms such as chest pain or difficulty breathing Discharge Counseling Counseled pt/family regarding diagnosis, test results, medications/RX, home care, follow up needs Prescriptions Current Visit Scripts CEFDINIR (Cefdinir) 300 MG PO BID #20 CAP at 1255
--- NOTE | 2017-05-09 12:59 | Urgent Treatment Center Report ---
History of Present Issue Date/Time Seen by Provider 05/09/17 1244 Visit Reason Pt arrived:Walked Presenting Problem:PT STATES WAKING UP LAST NIGHT SWEATING WITH EAR FULLNESS, ACHES, SORE THROAT AND SWELLING TO HER THROAT. Location if Accident: Onset of symptoms date/time:05/09/17/ or onset unknown for:MEDICAL HX UNKNOWN Have you (or family members/close friends) recently traveled outside the [place]? N If Yes, where/when: Have you had exposure to infectious disease within the past month? TB? Other? Specify: Patient state that she has not been feeling well for several days, States that her ears feel full and her throat is very sore and swollen. States that she has been having body ache and not sure if she has been running a fever but has awoken in the night sweating as if her fever just broke ALLERGIES Coded Allergies: No Known Allergies (05/04/17) Home Medications Active Scripts NITROFURANTOIN MONOHYD/M-CRYST (Macrobid 100 MG Capsule) 100 MG PO BID #14 CAP Prov: 05/04/17 Phenazopyridine HCl (Pyridium) 100 MG PO TID #6 TAB Prov: 05/04/17 History Medical History General CAD? No Angina: No [place]: No Hypertension? No Hyperlipidemia? No CHF? No DVT? No PE? No COPD? No Asthma? No Anemia? No GERD? No Gastric ulcers? No GI Bleed? No Hernia? No Thyroid Problems? No Hypothyroidism? No CVA? No Seizures? No Diabetes? No Renal Insuffiency? No UTI? No Stones? No GB Disease: Yes Nephritic Syndrome? No Asplenia? No Hepatitis? No Sickle Cell Disease? No Arthritis? No Migraines? No Cataracts? No Glaucoma? No MRSA? No HIV? No TB? No Anxiety? No Depression? No Cancer? No Immunization HX DT/Tetanus > 10 YRS Surgical Hx Previous Surgery?Y Gallbladd Oral Surgery Family History Family HX Diabetes No CAD No Hypertension No Hyperlipidemia No Cancer No TB No Social History Smoking Hx Smoker: Never Smoker Tobacco: No Alcohol Alcohol: No Review of Systems All Other Systems Reviewed and Negative ENT ear pain, nose congestion, throat pain, throat swelling. Respiratory cough Physical Exam Vital Signs Vital Signs Date Time Temp Pulse Resp B/P Pulse O2 O2 Flow FiO2 Ox Delivery Rate 05/09 1214 98.2 103 20 115/80 99 General Appearance Patient appears ill sitting on exam table Ear, Nose, Throat tonsillar swelling, Throat bright red, swollen, drainage noted , left ear mildly red, tm buldging Respiratory Status Yes: trachea midline, chest symmetrical, non tender chest. No: respiratory distress. Cardiovascular normal exam, regular rate/rhythm, no peripheral edema, no gallop Neurologic alert, supervisor unloading II-XII nml as tested, normal exam, no motor/sensory deficits, oriented x 3 Medical Decision Making LABS/Meds/Orders Pt receiving controlled substance in ED? No Results/Orders Laboratory Tests 05/09/17 1212: Group A Strep Screen NOT DETECTED Orders Procedure Date/time Status [facility] STREP SCREEN 05/09 1217 Complete Departure Departure Time of Disposition 1254 Disposition DC Home or Self Care(routine) Clinical Impression Primary Impression: Upper respiratory infection Qualifiers: URI type: acute tonsillitis Pharyngitis/tonsillitis etiology: unspecified etiology Qualified Code: J03.90 - Acute tonsillitis, unspecified Condition STABLE Referrals Eric Selby MD (PCP/Family): 3 Days-Call Office if no improvement in symptom Patient Instructions Sore Throat Additional Instructions * Monitor Temp. Tylenol and/or Ibuprofen as needed. ER if fever is no less than 101 despite alternating Tylenol and Ibuprofen * Encourage fluids, water, Gatorade, powerade, pedialyte if infant/toddler/or child * Warm salt water gargles for throat irritation *Warm fluids *Sore throat lozenges *Sleep elevated *humidifier or vaporizer Follow up IMMEDIATELY for new or worsening of symptoms OR no noticeable improvement over the next 48-72 hours. 911 immediately for any life threatening symptoms such as chest pain or difficulty breathing Discharge Counseling Counseled pt/family regarding diagnosis, test results, medications/RX, home care, follow up needs Prescriptions Current Visit Scripts CEFDINIR (Cefdinir) 300 MG PO BID #20 CAP at 1251
[2017-05-09 13:14] VITALS: BP 115/80
== END 2017-05-09 13:14 | disposition home or self-care (01) ==
LOC: UTC 12:05
DX: J03.90 Acute tonsillitis, unspecified (principal)

== ENCOUNTER 2017-09-29 09:23 | Emergency (ER) | payer OTHER ==
[~2017-09-29] VITALS: Ht 162.6 cm; Wt 113.4 kg
[~2017-09-29 09:23] MED LIST changes: +OMNICEF 300 MG300 MG PO
--- NOTE | 2017-09-29 09:35 | Emergency Room Report ---
History of Present Illness Time Seen by MD Diez Presenting Problem in Triage Pt arrived:Walked Presenting Problem:CHEST PAIN Onset of symptoms date/time:09/28/17 or onset unknown for: Treatment Prior to Arrival: [employer] Provided by: Sepsis Risk Assessment: Temp: 98.2 B/P: 128/88 MAP: 102 Pulse: 90 Resp: 18 Recent fever? N Clinical Suspician of Infection? N Mental Status: 1 - Regular (Normal Baseline) Sepsis Risk:Low Sepsis Risk Have you (or family members/close friends) recently traveled outside the [place]? N If Yes, where/when: Have you had exposure to infectious disease within the past month? N TB? Other? Specify: Comment Patient complains of chest pain. She says that she has a midsternal chest pressure that started at 6 PM last night. She thought it was heartburn so she took Nexium. It did not go away. The pressure was there when she went to sleep and also there when she woke up this morning. She took another Nexium this morning. After arriving here to work, the pressure became more of a crushing sensation so she came to the emergency room. She denies shortness of breath, nausea, diaphoresis, or radiation. Nothing seems to make the discomfort better or worse. No leg pain or swelling. No recent travel, surgery, or hospitalization. No family history of heart disease. Nonsmoker. She normally is on no medications. She has a history of heartburn years ago, currently on no medications, takes [id number]-bmo-uzpyrav medications occasionally as needed. ALLERGIES Coded Allergies: No Known Allergies (05/04/17) Home Medications Active Scripts Phenazopyridine HCl (Pyridium) 100 MG PO TID #6 TAB Prov: 05/04/17 History Medical History General CAD? No Angina: No CT: No Hypertension? No Hyperlipidemia? No CHF? No DVT? No PE? No COPD? No Asthma? No Anemia? No GERD? No Gastric ulcers? No GI Bleed? No Hernia? No Thyroid Problems? No Hypothyroidism? No CVA? No Seizures? No Diabetes? No Renal Insuffiency? No End Stage Renal Disease? No UTI? No Stones? No GB Disease: Yes Nephritic Syndrome? No Asplenia? No Hepatitis? No Sickle Cell Disease? No Arthritis? No Migraines? No Cataracts? No Glaucoma? No MRSA? No HIV? No TB? No Anxiety? No Depression? No Cancer? No Immunization Hx DT/Tetanus > 10 YRS Surgical Hx Previous Surgery?Y Gallbladd Oral Surgery [employer] Hx LMP On Depo Med-LMP Unknown Family History Family Hx Diabetes No CAD No Hypertension No Hyperlipidemia No Cancer No TB No Social History Smoking Hx Smoker: Never Smoker Tobacco: No Alcohol Alcohol: No Review of Systems All Other Systems Reviewed and Negative Constitutional denies diaphoresis Respiratory denies shortness of breath Cardiovascular chest pain, denies edema, denies palpitations, denies syncope Gastrointestinal denies abdominal pain, denies nausea, denies vomiting Physical Exam Vital Signs Vital Signs Date Time Temp Pulse Resp B/P Pulse O2 O2 Flow FiO2 Ox Delivery Rate 09/29 1038 78 110/68 99 09/29 1010 89 18 132/80 99 09/29 0943 90 18 128/88 99 09/29 0941 18 09/29 0924 98.2 97 18 135/86 98 General Appearance normal appearance, WD/WN Eye Exam - bilateral eye normal exam, bilateral eye PERRL, bilateral eye EOMI Ear, Nose, Throat hearing grossly normal, normal ENT inspection Neck normal inspection, non-tender, supple, full range of motion Respiratory Status Yes: trachea midline, chest symmetrical, non tender chest. No: respiratory distress. Lung Sounds bilateral: normal breath sounds, lungs clear. Cardiovascular normal exam, regular rate/rhythm, no peripheral edema, no gallop, no JVD, no murmur, no rub, normal peripheral pulses Peripheral Pulses Pulses normal Yes Gastrointestinal normal bowel sounds, normal exam, non tender, soft, no organomegaly Extremities non-tender, normal range of motion, normal inspection, no calf tenderness, no pedal edema Neurologic alert, normal exam, oriented x 3 Mental status normal mood/affect Skin intact, normal color, warm/dry Medical Decision Making LABS/Meds/Orders Pt receiving controlled substance in ED? No Results/Orders Laboratory Tests 09/29/17 0930: Sodium 140, Potassium 4.2, Chloride 104, Carbon Dioxide 28, BUN 12, Creatinine 0.9, Estimated Creat Clear 155, Estimated GFR (MDRD) 71, Glucose 102, Calcium 9.1, Total Bilirubin 0.7, AST 27, ALT 38, Alkaline Phosphatase 87, Creatine Kinase 77, CK-MB (CK-2) Rel Index 0.6, CK and CKMB Interp < 0.5, Troponin I < 0.02, Total Protein 7.7, Albumin 4.1, Globulin 3.6 H, Albumin/Globulin Ratio 1.1, Lipase 180, D-Dimer < 100, WBC 9.5, RBC 4.93, Hgb 15.2, Hct 44.6, MCV 90.5, RDW 12.7, Plt Count 249, MPV 8.1, Gran % 57.7, Gran # 5.5, Lymphocytes % 30.7, Monocytes % 6.9, Eosinophils % 4.3, Basophils % 0.5, Lymphocytes # 2.9, Monocytes # 0.7, Eosinophils # 0.4, Basophils # 0.0, PUBS MCHC 34.2, MCH 30.9 Current Medication Orders Sig/Shelbie Start time Last Medication Dose Route Stop Time Status Admin Nitroglycerin 0.4 MG [id number] PRN 09/29 0945 DCD 09/29 SL 0941 Nitroglycerin 0 .STK-MED ONE 09/29 0934 DC SL Aspirin 324 MG ONCE ONE 09/29 930 DC 09/29 PO 09/29 931 0935 Sodium Chloride 10 ML PRN PRN 09/29 930 DCD IV 09/30 09 Aspirin 0 .STK-MED ONE 09/29 927 DC .ROUTE Orders Procedure Date/time Status D-DIMER 09/29 958 Complete ELECTROCARDIOGRAM REQUEST 09/29 927 Active IV SALINE LOCK 09/29 927 Active LIPASE 09/29 927 Complete CBC WITH AUTO DIFF 09/29 927 Complete CARDIAC ENZYMES 09/29 927 Complete CHEM 12 PROFILE 09/29 927 Complete 12 LEAD EKG-REI (INITIAL) 09/29 UNK Active CM/EKG CM/EKG Comments EKG interpreted by Min Sahu MD: Rhythm: sinus tachycardia Rate: 114 Tillar: LEFT Ectopy: none Conduction: normal ST Segment Changes: none T Wave Changes: none Q Waves: none No evidence of acute ischemia or injury Low voltage QRS XRAY/CT/US XRAY/CT/US XRAY chest Comment Chest x-ray interpreted by Min Sahu M.D. No infiltrate, pneumothorax, pleural effusion, or wide mediastinum. Progress - 10:28 AM: The patient is very low risk for heart disease. No risk factors. Her chest discomfort has been present since 6 PM yesterday evening, continuous, and troponin is negative. Because of the duration of her pain I do not feel a second troponin is necessary. I estimate there is LOW risk for PULMONARY EMBOLISM, ACUTE CORONARY SYNDROME, OR THORACIC AORTIC DISSECTION, thus I consider the discharge disposition reasonable. Departure Departure Disposition DC Home or Self Care(routine) Clinical Impression Primary Impression: Atypical chest pain Condition STABLE Patient Instructions DI for Atypical Chest Pain Additional Instructions Additional instructions for CHEST PAIN: See your physician as soon as possible for further evaluation. Return immediately if worsening chest pain, vomiting, shortness of breath, fever, coughing of blood. ED Critical Care Critical Care No at 1437
[2017-09-29 09:47] LABS: HEMOGLOBIN 15.2 g/dL (12.2-16.2); LYMPH # 2.9 K/mm3 (0.7-4.5); LYMPH % 30.7 % (10-50.0)
--- OUTSIDE RECORDS SUMMARY | 2017-09-29 09:49 | External Medical Summary Rpt | CCD ---
Demographics Preferred Language Bulgarian Marital Status Unknown Worship Affiliation Unknown Race Unknown Ethnic Group Unknown Author Author , DAYNE OSCAR Address Unknown Phone Immunization No patient found.
--- OUTSIDE RECORDS SUMMARY | 2017-09-29 09:49 | External Medical Summary Rpt | CCD ---
Author Author , DAYNE OSCAR Address Unknown Phone [email or web address] Care Team Providers Care [employer] Scout Name Role Phone Ritu Marinelli MD, Unavailable Unavailable Ritu Marinelli MD Purpose Continuity of Care Document - 10-03-2013 through 2016 Problems Code Diagnosis DOS Provider Status 558.9 558.9 10-03-2013 [facility] Allergies, Adverse Reactions, Alerts Type [...] ti 4 ve MG /2 ML AL MN 00 12 0 No OM 64 -0 [...] Ac MG ti /M ve L AL MN 51 12 0 No OM 07 -0 ET 90 2- Lo DELGADO 89 20 ng ZI 52 13 er NE 0H Ac 25 ti MG ve TA BL ET TA KE MN 45 12 0 No OM 80 -0 [...] Order Detail nces retati t Range on Streptococcus pyogenes Ag [Presence] in Unspecified specimen (05-09-2017 12:12) Strepto NOT NOTDETE complet coccus 0[address]ED ed pyogene 12:12 D s Ag [Presen ce] in Unspeci fied specime n Urinalysis macro (dipstick) panel in Urine (05-04-2017 [...] with AUTO DIFF (10-03-2013 16:02) WBC # 10-03- 14.8 4.8-10. complet Bld 013 K/MM3 8 ed Auto 16:02 RBC # 10-03- 5.23 4.2-5.4 complet Bld 013 M/mm3 ed Auto 16:02 Hgb 12-02-2 15.6 12.2-16 complet Bld-mCn 013 g/dL .2 ed c 16:02 Hct Fr 10-03-2 45.8 % 37.0-47 complet Bld 013 .0 ed 16:02 MCV RBC 1202-2 87.5 fl 82.2-97 complet 013 .8 ed 16:02 MCH RBC 10-03-2 29.9 pg 27-31.2 complet Qn 013 ed Auto 16:02 MEAN 2 34.2 31.8-35 complet CORPUSC 013 g/dl .4 [...] 013 K/mm3 ed Bld 16:02 Auto Lymphoc 12-02-2 0.6 0.7-4.5 complet ytes Fr 013 K/mm3 ed Bld 16:02 Auto Monocyt 1202-2 0.5 0.1-1.0 complet es # 013 K/mm3 ed Bld 16:02 Auto Eosinop 12-2 0.1 0.0-0.4 complet hil # 013 K/mm3 ed Bld 16:02 Auto Basophi 10-03-2 0.0 0-0.2 complet ls # 013 K/MM3 ed Bld 16:02 Auto Encounters Encounter Start End Date Code Location Performer Type Date Emergency POLO Marinelli MD (ER) 3 16:02 3 19:59 [facility]
--- OUTSIDE RECORDS SUMMARY | 2017-09-29 09:49 | External Medical Summary Rpt | CCD ---
Author Author , DAYNE OSCAR Address Unknown Phone [email or web address] Care Team Providers Care Underwriting Clerks Supervisor Name Role Phone Ritu Marinelli MD, Unavailable Unavailable Ritu Marinelli MD Purpose Continuity of Care Document - 10-03-2013 through 2016 Problems Code Diagnosis DOS Provider Status 558.9 558.9 10-03-2013 [facility] NEC Allergies, Adverse Reactions, Alerts Type [...] ti 4 ve MG /2 ML AL SD 00 12 0 No OM 64 -0 [...] Ac MG ti /M ve L AL SD 51 12 0 No OM 07 -0 ET 90 2- Lo DELGADO 89 20 ng ZI 52 13 er NE 0H Ac 25 ti MG ve TA BL ET TA KE SD 45 12 0 No OM 80 -0 [...] Marinelli MD (ER) 3 16:02 3 19:59 [facility]
--- OUTSIDE RECORDS SUMMARY | 2017-09-29 09:49 | External Medical Summary Rpt ---
Author Author DAYNE Sood, DAYNE [employer] Address Unknown Phone Unavailable Results Streptococcus pyogenes Ag [Presence] in Unspecified specimen Observa Value Referen Units Interpr Notes Date tion ce etation Range Strepto NOT NOTDETE No No LOT # May 8 coccus DETECTE CTED informa informa N/A EXP 2017 pyogene D tion in tion in DATE 12:12 s Ag source source N/A PM [Presen data data ce] in Unspeci fied specime n Urinalysis macro (dipstick) panel in Urine Observa [...] No May 04 te informa l informa 2016 esteras tion in tion in 9:24 AM [...] data Carbon 21.0 - mmoL/L Normal No Apr 07 dioxide, 32.0 informati 2016 8:30 total on in AM [Moles/vo source lume] in data Serum or Plasma Creatinin 0.55 - mg/dL Normal No Apr 07 e 1.02 informati 2016 8:30 [Mass/vol on in AM ume] in source Serum or data Plasma Estimated 59- ML/MIN No REFERENCE Apr 07 informati RANGE: 2017 8:30 glomerula on in >60 AM r source ML/MIN/1. filtratio data 73 SQUARE n rate METERSIf (GF this patient is -A merican, then multiply theresult by 1.210. Globulin 1.3 - 3.2 gm/dL Normal No Apr 07 [Mass/vol informati [...] 0 - 130 mg/dL Normal No Apr 6 ol in LDL informati 2017 8:30 on in AM [Mass/vol source ume] in data Serum or Plasma by calculati on Triglycer 30 - 200 mg/dL Normal No Apr 6 thai informati 2016 8:30 [Moles/vo on in [...] - 0.2 K/MM3 Normal No Apr 6 inform2016 8:30 [#/volume on in AM ] in [...] K/mm3 Normal No Apr 6 bryan informati 2016 8:30 [#/volume on in AM ] in source Blood by data Automated count Granulocy 37.0 - % Normal No Apr 6 bryan/100 80.0 informati 2016 8:30 leukocyte on in AM s in source Blood by data Automated count Hematocri 37.0 - % Normal No Apr 6 t [Volume 47.0 informati 2016 8:30 on in AM Fraction] source of Blood data Hemoglobi 12.2 - g/dL Normal No Apr 07 n 16.2 informati 2016 8:30 [Mass/vol on in AM ume] in source Blood data Lymphocyt 0.7 - 4.5 K/mm3 Normal No Apr 6 es informati 2017 8:30 [#/volume on in AM ] in source Unspecifi data ed specimen by Automated count Lymphocyt 10 - 50.0 % Normal No Apr 6 es informati 2017 8:30 [#/volume on in AM ] in source Unspecifi data ed specimen by Automated count Erythrocy 27 - 31.2 pg High No Apr 6 te mean informati 2017 8:30 corpuscul on in AM ar source hemoglobi data n [Entitic mass] Erythrocy 31.8 - g/dl Normal No Apr 07 te mean 35.4 informati 2017 8:30 corpuscul on in AM ar source hemoglobi data n concentra tion [Mass/vol ume] by Automated count Erythrocy 82.2 - fl Normal No Apr 07 te mean 97.8 informati 2017 8:30 corpuscul on in AM ar volume source [Entitic data volume] by Automated count Monocytes 0.1 - 1.0 K/mm3 Normal No Apr 6 informati 2017 8:30 [#/volume on in AM ] in source Blood by data Automated count Monocytes 1.7 - 9.3 % Normal No Josemanuel 6 /100 informati 2017 8:30 leukocyte on [...] Normal No Apr 6 te 17.5 informati 2017 8:30 distribut on in AM ion width source [Entitic data volume] by Automated count Leukocyte 4.8 - K/MM3 Normal No Josemanuel 6 s 10.8 informati 2017 8:30 [#/volume on in AM ] in source Blood data
--- OUTSIDE RECORDS SUMMARY | 2017-09-29 09:49 | External Medical Summary Rpt ---
Author Author DAYNE Sood, [employer] Address Unknown Phone Unavailable [...] 37.0 - % Normal No Apr 6 rbyan/100 80.0 informati 2016 8:30 leukocyte on in [...]
--- OUTSIDE RECORDS SUMMARY | 2017-09-29 09:49 | External Medical Summary Rpt | CCD ---
Demographics Preferred Language German Marital Status Unknown Rastafarian Affiliation Unknown Race Unknown Ethnic Group Unknown Author Author , DAYNE OSCAR Address Unknown Phone Immunization No patient found.
[2017-09-29 10:15] LABS: BUN 12 mg/dL (7-18); GFR (ESTIMATED) 71 ML/MIN (59-)
[2017-09-29 10:38] VITALS: BP 110/68
--- NOTE | 2017-09-29 11:39 | RADIOLOGY REPORT PS360 ---
CHEST(2 VIEWS-NOT PORTABLE) HISTORY: CHEST PRESSURE ORDERING PHYSICIAN: Min Sahu MD PATIENT AGE: 37 years COMPARISON: 08/29/2014 FINDINGS: Unremarkable heart size. Increased soft tissue density is present along the right heart border consistent with prominent pericardial fat pad unchanged from the previous exam. The lungs are clear bilaterally. No lobar consolidation or collapse. There are mild degenerative changes in the thoracic spine. IMPRESSION: 1. No change with no acute finding 2. Right pericardial fat pad as a normal variant
== END 2017-09-29 10:39 | disposition home or self-care (01) ==
LOC: ER 09:23
PROVIDERS: Emergency Medicine
DX: R07.89 Other chest pain (principal)

== ENCOUNTER 2017-10-19 07:55 | Day surgery (SDC) | payer OTHER ==
--- NOTE | 2017-10-19 08:55 | Operative Note ---
Upper GI Endoscopy Procedure date: 10/19/17 Date of : 82 Procedure:Upper GI Endoscopy Esophagogastroduodenoscopy with cold biopsies Indications: Mrs. Aden is a 37-year-old female who recently had more severe heartburn which was described as severe pain in the mid retrosternal region. She did get to the emergency department and had cardiac testing which ruled out a cardiac etiology of her pain. This was felt to be noncardiac. She has had more reflux recently and she has been taking Nexium when necessary. She does have some epigastric abdominal pain and moderate belching. She has increased bloating and gassiness. She reports no nausea, early satiety, dysphagia or globus sensation. She does have chronic constipation and will take laxatives when necessary. Performing Provider: Elly Hernandez MD Referring Provider: Eric Selby M.D. Sedation: Fentanyl 200 mg IV/Versed 9 mg IV Procedure: Prior to the procedure, a history and physical exam was performed, and patients medications and allergies were reviewed. The risks and benefits of the procedure and the sedation options and risks were discussed with the patient. All questions were answered and informed consent was obtained. The patient was brought to the procedure room. Patient identification and proposed procedure were verified by the physician and the nurse. The patient was placed in a left lateral decubitus position and the scope was passed under direct vision. Throughout the procedure, the patient's blood pressure, pulse, and oxygen saturations were monitored continuously. The endoscope was introduced through the mouth, and advanced to the second part of duodenum. The upper GI endoscopy was accomplished without difficulty. The patient tolerated the procedure well. Findings: The scope was passed directly into the upper esophagus and advanced to the third portion of the duodenum. The post bulbar duodenum and duodenal bulb were normal with normal mucosa and conniventes. There was very mild duodenal lymphoid stasis. Cold biopsies were taken from the duodenum to rule out celiac disease. The scope was withdrawn through a normal duodenal bulb and pylorus into the stomach. There was moderate bile reflux with moderate linear reactive antritis/ gastritis. There was a single 5-6 mm polyp along the greater curvature in the body of the stomach removed via cold biopsy. The remainder of the antrum, body and fundus of the stomach were grossly normal. Upon retroflexion there was no hiatal hernia. 2 biopsies were taken in the antrum and along the lesser curvature for histology. The scope was then withdrawn into the esophagus. There was no evidence of reflux esophagitis or Fitzpatrick's. There were tertiary contractions and evidence of mild esophageal dysmotility. There appeared to be very faint distal esophageal varices. The remainder of the esophageal mucosa was normal. Immediate complications: None EBL (ml): 0 Impression: 1. Nonerosive gastroesophageal reflux disease with mild esophageal dysmotility 2. Very faint grade 1 esophageal varices 3. Bile reflux with linear reactive gastritis 4. Small gastric polyp Recommendations: I do feel that the patient's chest pain symptoms are related to esophageal dyskinesia and she does have functional duodenal/gastroesophageal reflux. She also has functional dyspepsia. We will discuss additional dietary measures and treatment options. I will follow-up the biopsies. Based upon the faint esophageal varices, I am going to obtain hepatic fibrotic markers. at 0823
[2017-10-19 10:41] LABS: LYMPH # 1.9 K/mm3 (0.7-4.5); LYMPH % 27.6 % (10-50.0)
[2017-10-19 10:56] LABS: HEMOGLOBIN 13.3 g/dL (12.2-16.2)
[2017-10-19 13:38] LABS: BUN 11 mg/dL (7-18)
[2017-10-19 13:41] LABS: GFR (ESTIMATED) 95 ML/MIN (59-)
[2017-10-19 17:38] VITALS: BP 119/67
[2017-10-23 05:40] LABS: ALT (SGPT) P5P 19 IU/L (0-40); Alpha 2-Macroglobulins, Qn 131 mg/dL (110-276); Apolipoprotein A-1 115 mg/dL (116-209); Bilirubin, Total 0.4 mg/dL (0.0-1.2); Fibrosis Score 0.06 (0.00-0.21); GGT 16 IU/L (0-60); Haptoglobin 125 mg/dL (34-200); Necroinflammat Activity Grade A0-No activity (.); Necroinflammat Activity Score 0.05 (0.00-0.17)
== END 2017-10-19 10:30 | disposition home or self-care (01) ==
LOC: SDC 07:55
PROVIDERS: Internal Medicine Gastroenterology
PROC: 0DB78ZX Excision of Stomach, Pylorus, Via Natural or Artificial Opening Endoscopic, Diagnostic (ICD-10-PCS; 2017-10-19)
PROC: 0DB98ZX Excision of Duodenum, Via Natural or Artificial Opening Endoscopic, Diagnostic (ICD-10-PCS; principal; 2017-10-19 09:00)
DX: R12 Heartburn (principal); K21.9 Gastro-esophageal reflux disease without esophagitis; D13.1 Benign neoplasm of stomach; I85.00 Esophageal varices without bleeding; K29.70 Gastritis, unspecified, without bleeding